=== PATIENT | male | born 1950 | race Caucasian/White ===

== ENCOUNTER 2018-04-10 17:28 | Emergency (ER) | payer OTHER ==
[~2018-04-10] VITALS: Ht 167.6 cm; Wt 72.7 kg
[2018-04-10 17:29] VITALS: BP 165/87
[2018-04-10] MEDS ORDERED: LEVO100 PO (17:34)
[2018-04-10] MEDS ORDERED: LISI-662 PO (17:34)
[2018-04-10] MEDS ORDERED: AMLO-512 PO (17:34)
== END 2018-04-10 18:50 | disposition home or self-care (01) ==
LOC: EMS 17:30
DX: G51.0 Bell's palsy (principal); F17.210 Nicotine dependence, cigarettes, uncomplicated; I10 Essential (primary) hypertension; E03.9 Hypothyroidism, unspecified; Z79.899 Other long term (current) drug therapy